=== PATIENT | male | born 1960 | race Caucasian/White ===

== ENCOUNTER 2016-11-29 19:39 | Emergency (ER) | payer OTHER | END 2016-11-29 20:55 | disposition home or self-care (01) | LOC: ER 19:39 | DX: J32.9 Chronic sinusitis, unspecified (principal); D64.9 Anemia, unspecified; I87.8 Other specified disorders of veins; R11.0 Nausea; I12.9 Hypertensive chronic kidney disease with stage 1 through stage 4 chronic kidney disease, or unspecified chronic kidney disease; N18.9 Chronic kidney disease, unspecified; E66.9 Obesity, unspecified; E11.9 Type 2 diabetes mellitus without complications; I25.10 Atherosclerotic heart disease of native coronary artery without angina pectoris; Z79.899 Other long term (current) drug therapy; Z88.2 Allergy status to sulfonamides; Z88.5 Allergy status to narcotic agent; Z79.4 Long term (current) use of insulin; Z89.511 Acquired absence of right leg below knee ==